=== PATIENT | female | born 1970 | race African-American/Black ===

== ENCOUNTER 2017-07-04 10:20 | Emergency (ER) | payer OTHER ==
[~2017-07-04] VITALS: Ht 160 cm; Wt 113.6 kg
[~2017-07-04 10:20] MED LIST: AUGMENTIN875TAB PO; CIPROFLOXACN500 MG PO; DOXYCYCL HYC100 MG PO; FLEXERIL PO; FLONASE NASAL50 MCG; MEDDOSEPAK PO; NAPROSYN500 MG PO; OMEPRAZOLE20 M2 PO; PLAVIX75 MG PO; PREDNISONE20 MG PO; ROBITUSSIN AC10 ML PO; SOLU-MEDROL125 MG IM; ZANAFLEX4 MG PO; ZANAFLEX6 MG PO; ZITHROMAX500 MG PO
[2017-07-04] MEDS ORDERED: FLEXERIL5 MG PO (10:57)
[2017-07-04 11:14] LABS: HEMATOCRIT 37.6 % (37.0-47.0); HEMOGLOBIN 12.6 g/dl (12.0-16.0); IMMATURE GRANULOCYTES 0.3 % (0.0-1.0); MEAN CELL VOLUME 76.7 fL CALC (80.0-100.0); MEAN CORPUSCULAR HGB 25.7 pG CALC (26.0-32.0); MEAN CORPUSCULAR HGB CONC 33.5 g/L CALC (32.0-36.0); NEUT# 3.69 thou/uL (2.00-7.15); RED BLOOD COUNT 4.9 mill/uL (4.20-5.60); RED CELL DISTRI WIDTH 15.6 % (11.5-15.5)
[2017-07-04 11:31] LABS: ALBUMIN 4.3 g/dL (3.2-5.0); ALKALINE PHOSPHATASE 110 u/l (38-126); AMYLASE 68 u/l (30-110); ANION GAP 16 (6-22 (CALC)); BILIRUBIN, TOTAL 0.5 mg/dL (0.0-1.4); BUN 10 mg/dL (7-17); BUN/CREATININE RATIO 12 (12-20 (CALC)); CALCIUM 9.4 mg/dL (8.4-10.2); CARBON DIOXIDE 28 mmol/l (22-30); CHLORIDE 104 mmol/l (95-108); CREATININE 0.8 mg/dL (0.5-1.0); GFR > 60 ML/MIN (>=60 (CALC)); GFR FOR AFR.AMER. > 60 ML/MIN (>=60 (CALC)); GLUCOSE 94 mg/dL (65-105); LIPASE 141 u/l (23-300); SGOT/AST 23 u/l (14-36); SGPT/ALT 28 u/l (9-52); SODIUM 144 mmol/l (137-146)
[2017-07-04 11:39] LABS: MYOGLOBIN 28 ng/mL (0 - 62)
[2017-07-04] MEDS ORDERED: ULTRAM50 M1 PO (13:07)
[2017-07-04 13:48] VITALS: BP 171/93
== END 2017-07-04 13:48 | disposition home or self-care (01) | DRG 552 ==
LOC: ED 10:20
PROVIDERS: Emergency Medicine
DX: M54.2 Cervicalgia (principal); M54.6 Pain in thoracic spine; M54.5 Low back pain

== ENCOUNTER 2017-09-14 13:54 | Emergency (ER) | payer OTHER ==
[~2017-09-14] VITALS: Ht 160 cm; Wt 125.0 kg
[~2017-09-14 13:54] MED LIST changes: +FLEXERIL5 MG PO; +ULTRAM50 M1 PO
[2017-09-14 15:00] VITALS: BP 149/74
[2017-09-14] MEDS ORDERED: TORADOL PO (15:01)
== END 2017-09-14 15:00 | disposition home or self-care (01) | DRG 563 ==
LOC: ED 13:54
DX: S86.912A Strain of unspecified muscle(s) and tendon(s) at lower leg level, left leg, initial encounter (principal); X50.9XXA Other and unspecified overexertion or strenuous movements or postures, initial encounter; Y93.89 Activity, other specified; Y92.89 Other specified places as the place of occurrence of the external cause

== ENCOUNTER 2019-05-29 07:42 | Day surgery (SDC) | payer OTHER ==
[2019-05-29] VITALS (10 sets, daily range): BP systolic 113–137; BP diastolic 51–79
[~2019-05-29] VITALS: Ht 160 cm; Wt 136.0 kg
[~2019-05-29 07:42] MED LIST changes: +ASPIRIN81 MG PO; +MICROZIDE PO; +PHENTERMINE30 MG PO; +POT CHLORIDE10 ME5 PO; +ST JOHNS WORT PO; +TORADOL PO
[2019-05-29 09:04] LABS: ALBUMIN 4.4 g/dL (3.2-5.0); ALKALINE PHOSPHATASE 76 u/l (38-126); BUN 14 mg/dL (7-17); BUN/CREATININE RATIO 19 (12-20 (CALC)); CARBON DIOXIDE 27 mmol/l (22-30); CHLORIDE 106 mmol/l (95-108); CREATININE 0.8 mg/dL (0.5-1.0); GFR > 60 ML/MIN (>=60 (CALC)); GFR FOR AFR.AMER. > 60 ML/MIN (>=60 (CALC)); SGOT/AST 35 u/l (14-36); SODIUM 142 mmol/l (137-146); TOTAL PROTEIN 8.3 g/dL (6.3-8.2)
[2019-05-29 09:06] LABS: ANION GAP 15 (6-22 (CALC)); BILIRUBIN, TOTAL 0.8 mg/dL (0.0-1.4)
[2019-05-29 09:09] LABS: POTASSIUM 5.5 mmol/l (3.5-5.1)
--- NOTE | 2019-05-29 11:45 | NUR ---
PT RECEIVED FROM OR POST OP LEFT THYROIDECTOMY. PT IS ALERT AND ORIENTED X3 BUT DROWSY. RESP EVEN AND UNLABORED. O2 N/C ON AT 2L. NO DISTRESS NOTED. HOB IS ELEVATED. INC AT BASE OF NECK IS CLEAN, DRY AND INTACT WITH DERMABOND, NO BLEEDING NOTED. PT IS ABLE TO SWALLOW AND DENIES ANY DIFFICULTY BREATHING. PT DOES FOLLOW COMMANDS. LUNGS CLEAR BILAT. ABD SOFT AND NONDISTENDED WITH BOWEL SOUNDS PRESENT. NO LOWER EXT EDEMA NOTED. SCD'S ARE ON. IV SITE IS PATENT IN LEFT HAND WITH NO REDNESS OR SWELLING AT SITE. IVF LR AT 100CC/HR. PT WAS MEDICATED WITH PAIN MEDICINE PRIOR TO TRANSFER. PT INSTRUCTED ON COUGHING AND DEEP BREATHING. EMERGENCY TRACH TRAY IS AT BEDSIDE. SUCTION IS SET UP AT BEDSIDE. FAMILY WITH PT. LIMB ALERT BRACELET APPLIED TO RT ARM DUE TO HISTORY OF MASTECTOMY PER PTS FAMILY. WILL CONTINUE TO CLOSELY MONITOR. FAMILY INSTRUCTED ON PAIN MEDICINE AND DOSING SCHEDULE. FREQUENT ROUNDS MADE. CALL YOU WITHIN REACH.
--- NOTE | 2019-05-29 12:30 | NUR ---
PT AWAKE RESTING IN BED. PT IS TOLERATING SIPS OF WATER AND ICE CHIPS. RESP EVEN AND UNLABORED. INC REMAINS CLEAN AND DRY. IV SITE PATENT. FAMILY AT BEDSIDE. FREQUENT ROUNDS MADE. VSS. CALL YOU WITHIN REACH.
--- NOTE | 2019-05-29 13:15 | NUR ---
RESTING IN BED WITH EYES CLOSED. RESP EVEN AND UNLABORED. NO DISTRESS NOTED. INCISION SITE IS CLEAN AND DRY. IV SITE PATENT. FAMILY AT BEDSIDE. VSS. FREQUENT ROUNDS MADE. CALL YOU WITHIN REACH.
--- NOTE | 2019-05-29 14:22 | NUR ---
PT AWAKE RESTING IN BED HOB ELEVATED, WATCHING T.V. VSS. PT IS AFERILE. TEMP 97. MEDICATED WITH DILAUDID 1MG IV FOR NECK TENDERNESS AND DISCOMFORT. INC SITE IS CLEAN AND DRY WITH NO BLEEDING OR DRAINAGE PRESENT. IV SITE PATENT. PT IS TOLERATING SIPS OF WATER. ASSISTED WITH REPOSITIONING. SCD'S ON. DENIES ANY NAUSEA. FREQUENT ROUNDS MADE. CALL YOU WITHIN REACH.
--- NOTE | 2019-05-29 15:10 | NUR ---
RESTING IN BED WITH EYES CLOSED. PTS SISTER AT BEDSIDE. RESP EVEN AND UNLABORED. NO DISTRESS NOTED. INC SITE IS CLEAN AND DRY. NO DISTRESS NOTED. IV SITE PATENT. FREQUENT ROUNDS MADE. CALL YOU WITHIN REACH.
--- NOTE | 2019-05-29 16:13 | NUR ---
PT RESTING IN BED WITH EYES CLOSED. ASSESSMENT UNCHANGED. INC CLEAN AND DRY. IV SITE PATENT. NO DISTRESS NOTED. FREQUENT ROUNDS MADE. CALL YOU WITHIN REACH.
--- NOTE | 2019-05-29 17:16 | NUR ---
PT MEDICATED WITH DILAUDID 1MG IV FOR DISCOMFORT AT INC SITE. PT HAS BEEN TO BATHROOM AND HAS VOIDED WITHOUT ANY DIFFICULTY. IV SITE PATENT. VSS. PT ENCOUREGED TO USE INSENTIVE SPIROMETRY Q 1HR WHILE AWAKE. FREQUENT ROUNDS MADE. CALL YOU WITHIN REACH.
--- NOTE | 2019-05-29 18:07 | NUR ---
PT AWAKE SITTING UP IN BED EATING DINNER. ASSESSMENT UNCHANGED. IV SITE PATENT. RESP EVEN AND UNLABORED. CALL YOU WITHIN REACH.
--- NOTE | 2019-05-29 18:10 | NUR ---
PT RESTING IN BED. RESP EVEN AND UNLABORED. PT AT 100% OF DINNER. IV SITE PATENT. FREQUENT ROUNDS MADE. CALL YOU WITHIN REACH.
--- NOTE | 2019-05-29 20:10 | NUR ---
PT RESTING IN BED ON TELEPHONE, PT C/O PAIN 8/10 TO HER THROAT. PT STATES IT BEGAN AFTER USING INCENTIVE SPIROMETER, ENCOURAGED IT'S USE 10X EVERY HR WHILE AWAKE, VERBALIZED UNDERSTANDING. SCD'S IN PLACE. DISCUSSED POC. INCISION TO THROAT CDI;DERMABOND INTACT. ASSESSMENT COMPLETED, CALL LIGHT IN REACH,CONTINUE TO MONITOR.
--- NOTE | 2019-05-29 23:20 | NUR ---
PT RESTING IN BED C/O PAIN 05/20, PT MEDICATED FOR PAIN AT THIS TIME, TOLERATED WELL. CALL LIGHT IN REACH,CONTINUE TO MONITOR.
--- NOTE | 2019-05-30 00:09 | NUR ---
PT RESTING IN BED WITH EYES CLOSED, EASILY AROUSED TO VERBAL STIMULI, STATES PAIN 6/10 AT THIS TIME. CALL LIGHT IN REACH,CONTINUE TO MONITOR.
--- NOTE | 2019-05-30 03:40 | NUR ---
PT RESTING IN BED, RETURNED FROM BATHROOM. PT C/O PAIN, REQUESTING PAIN PILL. PT MEDICATED FOR PAIN 03/19. CALL LIGHT IN REACH,CONTINUE TO MONITOR.
[2019-05-30 04:17] VITALS: BP 112/69
--- NOTE | 2019-05-30 07:38 | NUR ---
SHIFT CHANGE REPORT, PT AWAKE ALERT AND ORIENTED RESTING IN BED, C/O PAIN AT THIS TIME, IVF INFUSING, CONCERNS WILL BE ADDRESSED [id number], CALL YOU IN REACH.
[2019-05-30 08:10] VITALS: BP 146/62
--- NOTE | 2019-05-30 12:38 | NUR ---
RESTING IN BED, ATE MEAL WITHOUT DIFFICULTY, PAIN CONCERNS ADDRESSED, WANTS TO KNOW WHETHER OR NOT SHE IS GOING HOME TODAY, ADVISED MD WILL BE ROUNDING LATER AND WILL UPDATE HER ON PLANS.
[2019-05-30] MEDS ORDERED: PERCOCET 5/325M1 TAB PO (12:45)
--- NOTE | 2019-05-30 14:08 | NUR ---
Discharge instructions given. Patient verbalizes understanding of same. Discharged in stable condition via Wheelchair to Home with family. All belongings sent with pt.
== END 2019-05-30 14:07 | disposition home or self-care (01) | DRG 627 ==
LOC: ORM 07:42 → MS2 11:28 → ORM 11:28
PROVIDERS: ATTEND Surgery
PROC: 0GBJ0ZZ Excision of Thyroid Gland Isthmus, Open Approach (ICD-10-PCS; principal; 2019-05-29)
PROC: 0GBG0ZZ Excision of Left Thyroid Gland Lobe, Open Approach (ICD-10-PCS; 2019-05-29)
DX: D34 Benign neoplasm of thyroid gland (principal)
CPT/HCPCS: J0131; J1100

== ENCOUNTER 2019-09-04 14:58 | Observation (INO) | payer OTHER ==
[~2019-09-04] VITALS: Ht 165.1 cm; Wt 136.0 kg
[~2019-09-04 14:58] MED LIST changes: +ALBUTEROL108 MCG/AC IN; +LASIX 20 MG TAB20 MG PO; +PERCOCET 5/325M1 TAB PO; +SENOKOT8.6 MG PO
--- NOTE | 2019-09-04 15:00 | NUR ---
PT DIRECTLY TO ROOM VIA WHEELCHAIR. HEAR RATE 188 SVT AT THIS TIME. MD AT BEDSIDE.
--- NOTE | 2019-09-04 15:10 | NUR ---
PATIENT HEART RATE 180'S, SVT. 12 MG OF ADENOSINE GIVEN RAPID IVP. PT ON STOCK PREPARER AND CONTINUOUS EKG. PT HEART RATE NOW 110 SINUS TACH. PT RESTING IN STRETCHER AND REPORTS CHEST PRESSURE/SOB IS NOW GONE. PT AWARE OF PLAN OF CARE AND WAIT TIME. CALL YOU WITHIN REACH.
[2019-09-04 15:32] LABS: HEMATOCRIT 38.8 % (37.0-47.0); HEMOGLOBIN 12.6 g/dl (12.0-16.0); IMMATURE GRANULOCYTES 0.3 % (0.0-5.0); MEAN CELL VOLUME 77.1 fL CALC (80.0-100.0); MEAN CORPUSCULAR HGB CONC 32.5 g/L CALC (32.0-36.0); NEUT# 5.87 thou/uL (2.00-7.15); RED BLOOD COUNT 5.03 mill/uL (4.20-5.60); RED CELL DISTRI WIDTH 15.9 % (11.5-15.5)
[2019-09-04 15:43] LABS: ALBUMIN 4.6 g/dL (3.2-5.0); ALKALINE PHOSPHATASE 122 u/l (38-126); ANION GAP 14 (6-22 (CALC)); BILIRUBIN, TOTAL 0.2 mg/dL (0.0-1.4); BUN 13 mg/dL (7-17); BUN/CREATININE RATIO 15 (12-20 (CALC)); CARBON DIOXIDE 28 mmol/l (22-30); CHLORIDE 103 mmol/l (95-108); CREATININE 0.8 mg/dL (0.5-1.0); GFR > 60 ML/MIN (>=60 (CALC)); GFR FOR AFR.AMER. > 60 ML/MIN (>=60 (CALC)); POTASSIUM 4.1 mmol/l (3.5-5.1); SGOT/AST 27 u/l (14-36); SODIUM 140 mmol/l (137-146); TOTAL PROTEIN 8.5 g/dL (6.3-8.2)
--- NOTE | 2019-09-04 16:00 | NUR ---
PT RESTING IN STRETCHER TALKING WITH FAMILY. MONITOR SHOWING 98 SR AT THIS TIME. CALL AVELINO GARCIA. PT DENIES ANY PAIN.
--- NOTE | 2019-09-04 17:00 | NUR ---
PATIENT RESTING IN STRETCHER WITH EYES CLOSED. PT DENIES ANY NEEDS AT THIS TIME. CALL YOU WITHIN REACH.
--- NOTE | 2019-09-04 18:00 | NUR ---
PT RESTING IN STRETCHER IN NAD. PT DENIES ANY SOB OR CHEST PAIN.
--- NOTE | 2019-09-04 18:58 | NUR ---
RECEIVED REPORT. AWAITING ADMISSION ORDERS
--- NOTE | 2019-09-04 19:00 | NUR ---
BEDSIDE REPORT TO ROSE ARELLANO.
--- NOTE | 2019-09-04 19:13 | NUR ---
PT RESTING. VSS. URINE SENT TO LAB. BLANKET GIVEN.
--- NOTE | 2019-09-04 19:40 | NUR ---
REPORT CALLED TO TIBURCIO
--- NOTE | 2019-09-04 19:45 | NUR ---
TO MS VIA W/C. THANKED STAFF FOR CARE
--- NOTE | 2019-09-04 19:45 | NUR ---
ALERT. TALKATIVE. DENIES PAIN. WANTS TO KEEP PANTS ON UNTIL IN ROOM
[2019-09-04 19:55] VITALS: BP 155/89
[2019-09-05 01:02] VITALS: BP 145/78
[2019-09-05 04:00] VITALS: BP 144/84
[2019-09-05 06:26] LABS: CHOLESTEROL HDL RATIO 4.7 (<4.4 (CALC))
[2019-09-05 08:00] VITALS: BP 126/74
--- NOTE | 2019-09-05 08:00 | NUR ---
PT IS AWAKE, ALERT, ORIENTED X 3. LUNGS ARE CLEAR BUT DIMINISHED, RA. PT DOES HAVE SHORTNESS OF BREATH WITH ACTIVITY. HR REGULAR, NO CALLS FROM ER.
[2019-09-05 10:46] VITALS: BP 174/88
--- NOTE | 2019-09-05 13:00 | NUR ---
PT CONTINUES WITH HEADACHE, PROVIDED MED ORDERED BY DR RAMEY. PT WITH VISITOR AT BEDSIDE.
[2019-09-05] MEDS ORDERED: TENORMIN25 MG PO (14:49)
[2019-09-05] MEDS ORDERED: METFORMIN500 MG PO (14:49)
[2019-09-05 15:30] VITALS: BP 160/83
--- NOTE | 2019-09-05 15:58 | NUR ---
PT HAS BEEN DISCHARGED TO HOME AFTER BEING SEEN BY DR RAMEY. PT VERBALIZED UNDERSTANDING OF DC INSTRUCTIONS, TAKEN BY WHEELCHAIR TO VEHICLE. PT LEAVES [facility] IN STABLE CONDITION.
== END 2019-09-05 15:47 | disposition home or self-care (01) | DRG 310 ==
LOC: ED 14:58 → ED-I 16:00 → ED 18:44 → MS2 18:45
PROVIDERS: Family Medicine; ADMIT Internal Medicine; ATTEND Internal Medicine
DX: I47.1 Supraventricular tachycardia (principal); E11.9 Type 2 diabetes mellitus without complications; I10 Essential (primary) hypertension; E89.0 Postprocedural hypothyroidism; G43.909 Migraine, unspecified, not intractable, without status migrainosus; J45.909 Unspecified asthma, uncomplicated; Z85.3 Personal history of malignant neoplasm of breast
CPT/HCPCS: G0378; J0153; Q9967

== ENCOUNTER 2020-03-10 20:30 | Emergency (ER) | payer OTHER ==
[~2020-03-10] VITALS: Ht 165.1 cm; Wt 125.0 kg
[~2020-03-10 20:30] MED LIST changes: +METFORMIN500 MG PO; +TENORMIN25 MG PO
[2020-03-10 22:02] LABS: HEMATOCRIT 34.3 % (37.0-47.0); HEMOGLOBIN 11.6 g/dl (12.0-16.0); IMMATURE GRANULOCYTES 0.1 % (0.0-5.0); MEAN CELL VOLUME 74.4 fL CALC (80.0-100.0); MEAN CORPUSCULAR HGB 25.2 pG CALC (26.0-32.0); MEAN CORPUSCULAR HGB CONC 33.8 g/dL CAL (32.0-36.0); RED BLOOD COUNT 4.61 mill/uL (4.20-5.60); RED CELL DISTRI WIDTH 16.2 % (11.5-15.5)
[2020-03-10 22:09] LABS: URINE BILIRUBIN - DIPSTICK NEGATIVE (NEGATIVE); URINE BLOOD DIPSTICK NEGATIVE (NEGATIVE); URINE COLOR YELLOW; URINE GLUCOSE - DIPSTICK NEGATIVE (NEGATIVE); URINE KETONE NEGATIVE (NEGATIVE); URINE LEUK ESTERASE NEGATIVE (NEGATIVE); URINE NITRITE - DIPSTICK NEGATIVE (Negative); URINE PROTEIN - DIPSTICK NEGATIVE (NEG-TRACE); URINE SPECIFIC GRAVITY <=1.005; URINE UROBILINOGEN - DIPSTICK 0.2 E.U./dL (0.2)
[2020-03-10 22:21] LABS: ALBUMIN 4.4 g/dL (3.2-5.0); ALKALINE PHOSPHATASE 91 u/l (38-126); ANION GAP 12 (6-22 (CALC)); BILIRUBIN, TOTAL 0.3 mg/dL (0.0-1.4); BUN 15 mg/dL (7-17); BUN/CREATININE RATIO 19 (12-20 (CALC)); CARBON DIOXIDE 28 mmol/l (22-30); CHLORIDE 99 mmol/l (95-108); CREATININE 0.8 mg/dL (0.5-1.0); GFR > 60 ML/MIN (>=60 (CALC)); GFR FOR AFR.AMER. > 60 ML/MIN (>=60 (CALC)); POTASSIUM 3.9 mmol/l (3.5-5.1); SGOT/AST 24 u/l (14-36); SODIUM 134 mmol/l (137-146); TOTAL PROTEIN 7.3 g/dL (6.3-8.2)
[2020-03-10 22:32] LABS: D-DIMER 1.09 mg/L (0.19-0.60); PROTHROMBIN TIME 9.8 SECONDS (9.0-12.5)
[2020-03-10 22:33] LABS: MYOGLOBIN 37 ng/mL (0 - 62)
[2020-03-11 00:02] VITALS: BP 134/63
== END 2020-03-11 00:02 | disposition home or self-care (01) | DRG 864 ==
LOC: ED 20:30
PROVIDERS: Family Medicine
DX: R50.9 Fever, unspecified (principal); R51 Headache; R52 Pain, unspecified; R06.02 Shortness of breath; E11.9 Type 2 diabetes mellitus without complications; I10 Essential (primary) hypertension; Z79.84 Long term (current) use of oral hypoglycemic drugs; Z20.828 Contact with and (suspected) exposure to other viral communicable diseases
CPT/HCPCS: Q9967

== ENCOUNTER 2020-10-10 20:04 | Emergency (ER) | payer OTHER ==
[~2020-10-10] VITALS: Ht 165.1 cm; Wt 120.0 kg
[2020-10-10 20:22] VITALS: BP 147/70
[2020-10-10] MEDS ORDERED: ATENOLOL25 MG PO (20:27)
[2020-10-10] MEDS ORDERED: METFORMIN HCL500 M1 PO (20:27)
[2020-10-10 21:02] LABS: HEMATOCRIT 36.6 % (37.0-47.0); HEMOGLOBIN 11.9 g/dl (12.0-16.0); IMMATURE GRANULOCYTES 0.2 % (0.0-5.0); MEAN CELL VOLUME 76.9 fL CALC (80.0-100.0); MEAN CORPUSCULAR HGB CONC 32.5 g/dL CAL (32.0-36.0); NEUT# 2.44 thou/uL (2.00-7.15); RED BLOOD COUNT 4.76 mill/uL (4.20-5.60)
[2020-10-10 21:12] LABS: ALBUMIN 4.2 g/dL (3.2-5.0); ALKALINE PHOSPHATASE 85 u/l (38-126); ANION GAP 12 (6-22 (CALC)); BILIRUBIN, TOTAL 0.3 mg/dL (0.0-1.4); BUN 12 mg/dL (7-17); BUN/CREATININE RATIO 13 (12-20 (CALC)); CARBON DIOXIDE 26 mmol/l (22-30); CHLORIDE 103 mmol/l (95-108); CREATININE 0.9 mg/dL (0.5-1.0); GFR > 60 ML/MIN (>=60 (CALC)); GFR FOR AFR.AMER. > 60 ML/MIN (>=60 (CALC)); POTASSIUM 4.2 mmol/l (3.5-5.1); SGOT/AST 27 u/l (14-36); SODIUM 137 mmol/l (137-146); TOTAL PROTEIN 7.4 g/dL (6.3-8.2)
== END 2020-10-10 22:22 | disposition home or self-care (01) | DRG 179 ==
LOC: ED 20:04
PROVIDERS: Family Medicine
DX: U07.1 COVID-19 (principal); R43.9 Unspecified disturbances of smell and taste; R52 Pain, unspecified; E11.9 Type 2 diabetes mellitus without complications; I10 Essential (primary) hypertension; Z79.84 Long term (current) use of oral hypoglycemic drugs

== ENCOUNTER 2021-01-04 08:27 | Emergency (ER) | payer OTHER ==
[~2021-01-04 08:27] MED LIST changes: +ATENOLOL25 MG PO; +METFORMIN HCL500 M1 PO
[2021-01-04 09:39] LABS: HEMATOCRIT 38.7 % (37.0-47.0); HEMOGLOBIN 12.1 g/dl (12.0-16.0); IMMATURE GRANULOCYTES 0.3 % (0.0-5.0); MEAN CELL VOLUME 79.6 fL CALC (80.0-100.0); MEAN CORPUSCULAR HGB 24.9 pG CALC (26.0-32.0); MEAN CORPUSCULAR HGB CONC 31.3 g/dL CAL (32.0-36.0); NEUT# 3.69 thou/uL (2.00-7.15); RED BLOOD COUNT 4.86 mill/uL (4.20-5.60)
[2021-01-04 11:18] LABS: ALBUMIN 4.4 g/dL (3.2-5.0); ALKALINE PHOSPHATASE 90 u/l (38-126); ANION GAP 12 (6-22 (CALC)); BILIRUBIN, TOTAL 0.5 mg/dL (0.0-1.4); BUN 14 mg/dL (7-17); BUN/CREATININE RATIO 14 (12-20 (CALC)); CARBON DIOXIDE 28 mmol/l (22-30); CHLORIDE 101 mmol/l (95-108); GFR 59 ML/MIN (>=60 (CALC)); GFR FOR AFR.AMER. > 60 ML/MIN (>=60 (CALC)); LIPASE 212 u/l (23-300); POTASSIUM 4.1 mmol/l (3.5-5.1); SGOT/AST 22 u/l (14-36); SODIUM 137 mmol/l (137-146)
[2021-01-04 11:55] LABS: URINE BILIRUBIN - DIPSTICK NEGATIVE (NEGATIVE); URINE BLOOD DIPSTICK NEGATIVE (NEGATIVE); URINE COLOR YELLOW; URINE GLUCOSE - DIPSTICK NEGATIVE (NEGATIVE); URINE KETONE NEGATIVE (NEGATIVE); URINE LEUK ESTERASE TRACE (NEGATIVE); URINE PROTEIN - DIPSTICK NEGATIVE (NEG-TRACE); URINE SPECIFIC GRAVITY 1.025; URINE UROBILINOGEN - DIPSTICK 0.2 E.U./dL (0.2)
[2021-01-04 11:58] LABS: URINE NITRITE - DIPSTICK NEGATIVE (Negative)
[2021-01-04 13:46] VITALS: BP 113/62
[2021-02-11] MEDS ORDERED: POTASSIUM CHLO10 MEQ PO (11:13)
[2021-02-11] MEDS ORDERED: HYDROCHLOROT25 MG PO (11:13)
[2021-02-11] MEDS ORDERED: ADULT ASPIRIN R81 MG PO (11:14)
[2021-02-11] MEDS ORDERED: SYMBICORT 80-4.5MCG IN (11:15)
[2021-02-11] MEDS ORDERED: PHENTERMINE HCL30 MG PO (11:15)
[2021-02-11] MEDS ORDERED: CLARITIN-D1 TA2 PO (11:15)
== END 2021-01-04 13:13 | disposition home or self-care (01) | DRG 392 ==
LOC: ED 08:27
PROVIDERS: Family Medicine
DX: R10.32 Left lower quadrant pain (principal); I10 Essential (primary) hypertension; E11.9 Type 2 diabetes mellitus without complications; Z79.84 Long term (current) use of oral hypoglycemic drugs
CPT/HCPCS: Q9967

== ENCOUNTER 2021-02-17 07:52 | Day surgery (SDC) | payer OTHER ==
[~2021-02-17 07:52] MED LIST changes: +ADULT ASPIRIN R81 MG PO; +CLARITIN-D1 TA2 PO; +HYDROCHLOROT25 MG PO; +PHENTERMINE HCL30 MG PO; +POTASSIUM CHLO10 MEQ PO; +SYMBICORT 80-4.5MCG IN
[2021-02-17 10:37] VITALS: BP 132/61
== END 2021-02-17 10:45 | disposition home or self-care (01) | DRG 951 ==
LOC: ENDO 07:52 → ORM 10:05 → ENDO 10:05 → ORM 11:00
PROVIDERS: ATTEND Surgery
PROC: 0DJD8ZZ Inspection of Lower Intestinal Tract, Via Natural or Artificial Opening Endoscopic (ICD-10-PCS; principal; 2021-02-17)
DX: Z12.11 Encounter for screening for malignant neoplasm of colon (principal); K64.8 Other hemorrhoids; K63.89 Other specified diseases of intestine; I10 Essential (primary) hypertension; E11.9 Type 2 diabetes mellitus without complications; Z80.0 Family history of malignant neoplasm of digestive organs; Z86.010 Personal history of colon polyps; Z79.84 Long term (current) use of oral hypoglycemic drugs

== ENCOUNTER 2022-04-25 06:48 | Day surgery (SDC) | payer OTHER ==
[~2022-04-25] VITALS: Ht 165.1 cm; Wt 115.2 kg
[~2022-04-25 06:48] MED LIST changes: +BIOTIN5000 MC2 PO; +CYCLOBENZAPRINE10 MG PO; +NAPROXEN250 MG PO; +NYSTATI1 TOP; +OMEGA 31000 MG PO; +PROTONIX PO; +PROTONIX40 M2 PO; +ST JOHN WORT300 MG PO; +VITAMIN D7 PO; +WEGOVY1 MG SC
[2022-04-25 09:17] VITALS: BP 122/82
== END 2022-04-25 09:40 | disposition home or self-care (01) | DRG 392 ==
LOC: ENDO 06:48 → ORM 08:45 → ENDO 08:45
PROVIDERS: ATTEND Surgery
PROC: 0DB78ZX Excision of Stomach, Pylorus, Via Natural or Artificial Opening Endoscopic, Diagnostic (ICD-10-PCS; principal; 2022-04-25)
DX: K29.70 Gastritis, unspecified, without bleeding (principal); K31.9 Disease of stomach and duodenum, unspecified; E11.9 Type 2 diabetes mellitus without complications; I10 Essential (primary) hypertension; E04.1 Nontoxic single thyroid nodule